=== PATIENT | male | born 1935 | race Caucasian/White ===

== ENCOUNTER → 2017-09-29 | Outpatient (CLI) | payer OTHER ==
[~2017-09-29] MED LIST: ASPI-555 PO; FISH OIL PO; FOLIC ACID PO; FURO20TA4 PO; GARLIC PO; IODOG TP; LISI-613 PO; LISI2.5T2 PO; METO25TA6 PO; MULTIVITAMIN PO; PANT40TA PO; SIMV20TA6 PO; VITAMIN D PO
== END | disposition home or self-care (01) ==
LOC: SHCH 10:50
PROVIDERS: ATTEND Internal Medicine Cardiovascular Disease
DX: I87.2 Venous insufficiency (chronic) (peripheral) (principal)
CPT/HCPCS: 93970